=== PATIENT | female | born 1995 | race Caucasian/White ===

== ENCOUNTER 2018-05-19 17:59 | Emergency (ER) | payer MEDICAID ==
[~2018-05-19] VITALS: Ht 160 cm; Wt 60.0 kg
[2018-05-19 18:38] VITALS: BP 131/71
[2018-05-19] MEDS ORDERED: BIRTH CONTROL (18:38)
== END 2018-05-20 05:38 | disposition left against medical advice (07) ==
LOC: ER 17:59
DX: Z53.21 Procedure and treatment not carried out due to patient leaving prior to being seen by health care provider (principal)